=== PATIENT | female | born 1965 | race Caucasian/White ===

== ENCOUNTER → 2017-02-12 | Outpatient (CLI) | payer MEDICAID ==
[~2017-02-12] MED LIST: ALBUTEROL17 GM INH; NAPROSYN500 MG PO; PREDNISONE PO; SYNTHROID PO; VICODIN 5/500 T1 TAB PO
--- NOTE | ~2017-02-12 | US24 ---
[facility] A Service of [facility] & [facility] RADIOLOGY TEXT RESULTS PATIENT: EDYTA MARRERO LOCATION: [facility] : [birth year] UNIT #: [id number] AGE: [address]: JORDI PATINO APRN SEX: F ORDER DR: [id number] [facility] [address] [place], [place] [address] [id number] O MR#: [id number] Acc #: [id number] NAME: EDYTA MARRERO : 1965 SEX: F STUDY DATE/TIME: 02/12/2017 13:40 UNIT: [facility] ROOM: STUDY DESCRIPTION: US Breast Unilateral Attending Physician: Tonia Patino M.D. Referring Physician: Jonny Rothman M.D. Ordering Physician: Tonia Patino M.D. Primary Care Physician: Jonny Rothman M.D. MEDICAL IMAGING REPORT This report is preliminary unless electronic signature is present EXAM Targeted ultrasound left breast, 02/12/2017. INDICATIONS Six month follow up of a probably benign cyst in the left breast at the 6:30 position. No new problems. History of breast cancer in a paternal cousin. TECHNIQUE Sonographic imaging of the left breast was performed in the area of the previously identified probably benign cyst. COMPARISON 05/21/2016 ultrasound and mammogram studies. FINDINGS LEFT BREAST: In the 6:30 position left breast, the previously identified, probably benign cyst appears to have partially collapsed and involuted upon itself. Dimensions are now 10 x 5 x 9 mm compared with 9 x 7 x 11 mm on the prior study. No new suspicious feature. There is posterior acoustical enhancement best appreciated in real time. Tiny adjacent cysts are also present similar to the prior study. Absent new or worsening symptoms, a bilateral mammogram in May of 2017 is recommended to return the patient to an annual screening schedule. Findings and recommendations were discussed with the patient here in the department. She has voiced understanding and agreement. IMPRESSION 1. The probably benign cyst in the 6:30 position left breast is smaller than on the prior study. A bilateral mammogram in November of 2017 is recommended to return the patient to an annual screening schedule. Findings and recommendations were discussed with the patient. [facility] A Service of [facility] RADIOLOGY TEXT RESULTS PATIENT: EDYTA MARRERO LOCATION: [facility] : 69 UNIT #: [id number] AGE: [address]: JORDI PATINO APRN SEX: F ORDER DR: 2. BIRADS 3. Patients over the age of 40 are entered into a reminder system with target due date for the next mammogram. A result letter will also be sent to the patient. BIRADS: 3 Probably benign finding; short interval followup suggested. Dictated by... Sedrick Crystal M.D. THIS IS AN ELECTRONICALLY VERIFIED REPORT Sedrick Crystal M.D. at 02/14/2017 7:23 AM Yaneth TD: 02/12/2017 17:41 JOB #: [id number] MEDICAL IMAGING REPORT Page 1 of 1 COPY
== END | disposition home or self-care (01) ==
LOC: CWCC 10:00
DX: N60.02 Solitary cyst of left breast (principal)
CPT/HCPCS: 76641